=== PATIENT | male | born 1955 | race Caucasian/White ===

== ENCOUNTER 2017-09-29 11:23 | Inpatient (IN) | payer OTHER ==
[2017-09-29 15:48] LABS: ADD MAN DIFF? NO
[2017-09-29 15:51] LABS: WHITE BLOOD COUNT 7.1 10^3/ul (4.8-10.8)
[2017-09-29 15:51] LABS: BASOPHILS % 0.6 % (0.0-2.0); EOSINOPHILS # 0.3 10^3/ul (0.0-0.5); EOSINOPHILS % 4.1 % (0.0-7.0); HEMATOCRIT 39.9 % (42.0-52.0); HEMOGLOBIN 12.3 g/dl (14.0-18.0); LYMPHOCYTES # 1.4 10^3/ul (0.8-2.9); MEAN CORPUSCULAR HEMOGLOBIN 26.2 pg (29.0-33.0); MEAN CORPUSCULAR HGB CONC 30.8 g/dl (32.0-37.0); MEAN CORPUSCULAR VOLUME 84.9 fl (82.0-101.0); MONOCYTE # 0.5 10^3/ul (0.3-0.9); MONOCYTES % 6.9 % (0.0-11.0); NEUTROPHIL # 4.9 10^3/ul (1.6-7.5); PLATELET COUNT 224 10^3/UL (140-415); RED CELL DISTRIBUTION WIDTH 15.8 % (11.5-14.5)
[2017-09-29] MEDS: ASPIRIN 325 MG TAB PO (16:03)
[2017-09-29 16:11] LABS: ANION GAP 16 (8-16); BLOOD UREA NITROGEN 12 mg/dl (7-20); CARBON DIOXIDE 25 mmol/L (21-31); CHLORIDE 106 mmol/L (97-110); CREATININE 1.02 mg/dl (0.61-1.24); GLUCOSE 99 mg/dl (70-220); POTASSIUM 4.4 mmol/L (3.5-5.1); SODIUM 143 mmol/L (135-144)
[2017-09-29 16:23] LABS: B-TYPE NATRIURETIC PEPTIDE 2870 PG/ML (0-125)
[2017-09-29 16:36] LABS: TROPONIN-I < 0.012 ng/ml (0.00-0.12)
[2017-09-29] MEDS: FUROSEMIDE 40 MG INJ IV (18:06)
[2017-09-29] MEDS ORDERED: ACETAMINOPHEN 325 MG TAB PO (20:00)
[2017-09-29] MEDS ORDERED: ONDANSETRON 4 MG INJ IV ×2 (20:00→20:30)
[2017-09-29] MEDS ORDERED: morphine 2 MG INJ IV (20:30)
[2017-09-29 22:17] LABS: CREATINE KINASE 92 IU/L (23-200)
[2017-09-29 22:31] LABS: CK-MB 0.96 ng/ml (0.0-2.4); TROPONIN-I 0.019 ng/ml (0.00-0.12)
[2017-09-30 05:36] LABS: ADD MAN DIFF? NO
[2017-09-30 05:39] LABS: BASOPHIL # 0.1 10^3/ul (0.0-0.1); BASOPHILS % 0.7 % (0.0-2.0); EOSINOPHILS # 0.2 10^3/ul (0.0-0.5); HEMATOCRIT 40.9 % (42.0-52.0); LYMPHOCYTES # 1.6 10^3/ul (0.8-2.9); LYMPHOCYTES % 21.2 % (15.0-51.0); MEAN CORPUSCULAR HEMOGLOBIN 26.2 pg (29.0-33.0); MEAN CORPUSCULAR HGB CONC 31.8 g/dl (32.0-37.0); MEAN CORPUSCULAR VOLUME 82.5 fl (82.0-101.0); MEAN PLATELET VOLUME 10.2 fl (7.4-10.4); MONOCYTE # 0.6 10^3/ul (0.3-0.9); MONOCYTES % 8.1 % (0.0-11.0); NEUTROPHILS % 66.7 % (39.0-77.0); PLATELET COUNT 285 10^3/UL (140-415); RED BLOOD COUNT 4.96 10^6/ul (4.70-6.10); RED CELL DISTRIBUTION WIDTH 15.8 % (11.5-14.5)
[2017-09-30 05:39] LABS: WHITE BLOOD COUNT 7.6 10^3/ul (4.8-10.8)
[2017-09-30 06:10] LABS: CREATINE KINASE 173 IU/L (23-200)
[2017-09-30 06:12] LABS: ALANINE AMINOTRANSFERASE 25 IU/L (13-69); ALBUMIN 3.9 g/dl (3.3-4.9); ALKALINE PHOSPHATASE 75 IU/L (42-121); ANION GAP 15 (8-16); ASPARTATE AMINO TRANSFERASE 19 IU/L (15-46); BILIRUBIN,INDIRECT 0.7 mg/dl (0-1.1); BILIRUBIN,TOTAL 0.7 mg/dl (0.2-1.3); BLOOD UREA NITROGEN 14 mg/dl (7-20); CALCIUM 9.6 mg/dl (8.4-10.2); CARBON DIOXIDE 25 mmol/L (21-31); CHLORIDE 104 mmol/L (97-110); CREATININE 1.03 mg/dl (0.61-1.24); GLUCOSE 96 mg/dl (70-220); MAGNESIUM 1.8 mg/dl (1.7-2.5); POTASSIUM 3.7 mmol/L (3.5-5.1); SODIUM 140 mmol/L (135-144); TOTAL PROTEIN 7.8 g/dl (6.1-8.1)
[2017-09-30 06:13] LABS: CK INDEX 0.6; TROPONIN-I 0.016 ng/ml (0.00-0.12)
[2017-09-30] MEDS ORDERED: FUROSEMIDE 20 MG INJ IV (06:30)
[2017-09-30] MEDS: ASPIRIN 81 MG TAB PO (08:49)
[2017-09-30] MEDS: FLUTICASONE 0.05% 16 GM NAS SPRAY NASAL ×2 (08:49→21:28)
[2017-09-30] MEDS: LISINOPRIL 10 MG TAB PO (08:50)
[2017-09-30] MEDS: FUROSEMIDE 20 MG TAB PO (08:50)
[2017-09-30 12:28] LABS: CHOLESTEROL 185 mg/dl (100-200)
[2017-09-30 12:28] LABS: CHOL/HDL RATIO 9.2 RATIO; HDL CHOLESTEROL 20 mg/dl (30-78); LDL CHOLESTEROL,CALCULATED 140 mg/dl; TRIGLYCERIDES 127 mg/dl (0-149)
[2017-09-30 14:05] LABS: HEMOGLOBIN A1C 5.9 % (0-5.9)
[2017-10-01 06:00] LABS: ADD MAN DIFF? NO
[2017-10-01 06:11] LABS: WHITE BLOOD COUNT 8.9 10^3/ul (4.8-10.8)
[2017-10-01 06:11] LABS: BASOPHIL # 0.1 10^3/ul (0.0-0.1); BASOPHILS % 0.6 % (0.0-2.0); EOSINOPHILS # 0.3 10^3/ul (0.0-0.5); EOSINOPHILS % 3.5 % (0.0-7.0); HEMATOCRIT 42.4 % (42.0-52.0); HEMOGLOBIN 13.7 g/dl (14.0-18.0); LYMPHOCYTES # 1.9 10^3/ul (0.8-2.9); LYMPHOCYTES % 20.8 % (15.0-51.0); MEAN CORPUSCULAR HEMOGLOBIN 26.4 pg (29.0-33.0); MEAN CORPUSCULAR HGB CONC 32.3 g/dl (32.0-37.0); MEAN CORPUSCULAR VOLUME 81.7 fl (82.0-101.0); MEAN PLATELET VOLUME 10.7 fl (7.4-10.4); MONOCYTE # 0.7 10^3/ul (0.3-0.9); MONOCYTES % 8.3 % (0.0-11.0); NEUTROPHILS % 66.5 % (39.0-77.0); PLATELET COUNT 310 10^3/UL (140-415); RED BLOOD COUNT 5.19 10^6/ul (4.70-6.10); RED CELL DISTRIBUTION WIDTH 16.2 % (11.5-14.5)
[2017-10-01 06:58] LABS: ANION GAP 17 (8-16); BLOOD UREA NITROGEN 22 mg/dl (7-20); CALCIUM 9.4 mg/dl (8.4-10.2); CARBON DIOXIDE 27 mmol/L (21-31); CHLORIDE 102 mmol/L (97-110); GLUCOSE 99 mg/dl (70-220); SODIUM 142 mmol/L (135-144)
[2017-10-01] MEDS: FLUTICASONE 0.05% 16 GM NAS SPRAY NASAL (09:40)
[2017-10-01] MEDS: ASPIRIN 81 MG TAB PO (09:41)
[2017-10-01] MEDS: INFLUENZA VIRUS VACCINE 0.5 ML SYG IM* (09:41)
[2017-10-01] MEDS: FUROSEMIDE 20 MG TAB PO (09:42)
[2017-10-01] MEDS: LISINOPRIL 10 MG TAB PO (09:43)
[2017-10-01] MEDS: NACL 0.9% 3 ML SYG IV (09:43)
[2017-10-01] MEDS: ACETAMINOPHEN 325 MG TAB PO (10:18)
== END 2017-10-01 16:58 | disposition home or self-care (01) | DRG 293 ==
LOC: MS3 19:34 → E/R 11:23
DX: I11.0 Hypertensive heart disease with heart failure (principal); J06.9 Acute upper respiratory infection, unspecified; I50.33 Acute on chronic diastolic (congestive) heart failure; R07.89 Other chest pain
CPT/HCPCS: 36415; 71045; 80048; 80053; 80061; 82550; 82553; 83036; 83735; 83880; 84443; 84484; 85025; 90686; 93005; 94660; 96374; 99291-25